=== PATIENT | female | born 1975 | race African-American/Black ===

== ENCOUNTER 2018-08-15 10:28 | Outpatient (CLI) | payer OTHER ==
--- NOTE | 2018-08-15 12:31 | Ultrasound Report ---
ULTRASOUND GUIDED NEEDLE CORE BIOPSY RIGHT BREAST WITH CLIP PLACEMENT: 08/15/18 CLINICAL: Right breast mass at 10 o'clock. COMPARISON :A recent [facility] mammogram and right breast ultrasound. 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 Ultrasound demonstrated an oval solid heterogeneous hypoechoic mass at 10 o'clock 5 cm from the nipple measuring 3.1 x 2.7 x 1.3 cm.. I marked the breast with a felt tip marker and a time out was called. The skin was prepped with Betadine and anesthetized with 1% lidocaine. Needle core biopsy was performed through a tiny dermatotomy using ultrasound guidance, 2% lidocaine with epinephrine for deep anesthesia and a 14-gauge Achieve biopsy device. 3 cores were obtained and placed in formalin. A clip was deployed within the mass. The patient tolerated the procedure well and there were no apparent complications. Hemostasis was achieved with minimal pressure and a sterile dressing was applied. A two view mammogram demonstrated concordant clip deployment. She left the department in good condition and was given instructions for wound care and followup. IMPRESSION: Uncomplicated ultrasound guided needle core biopsy with clip placement right breast.
--- NOTE | 2018-08-15 12:32 | Mammography Report ---
RIGHT DIGITAL DIAGNOSTIC MAMMOGRAM: 08/15/18 10:28:00 CLINICAL: For clip placement immediately status post ultrasound guided needle biopsy of a mass at 10 o'clock. COMPARISON:Recent [facility] mammogram FINDINGS: A biopsy clip is now identified in the upper-outer quadrant and the position is concordant with the mass identified by ultrasound. IMPRESSION: Concordant clip placement status post ultrasound biopsy. BI-RADS CATEGORY: 4--Suspicious Pathology pending.
== END 2018-08-15 10:29 | disposition home or self-care (01) ==
LOC: SPVWC 10:28
PROVIDERS: ATTEND Internal Medicine
DX: N60.91 Unspecified benign mammary dysplasia of right breast (principal); N63.11 Unspecified lump in the right breast, upper outer quadrant; N60.11 Diffuse cystic mastopathy of right breast
CPT/HCPCS: 88305; 88341; 88342